=== PATIENT | female | born 1965 | race Caucasian/White ===

== ENCOUNTER → 2020-04-03 | Outpatient (CLI) | payer BC ==
--- NOTE | 2020-04-03 11:31 | RAD ---
STUDY: US PELVIS W/TV HISTORY: Pelvic and perineal pain. COMPARISON: Correlation is made to a CT abdomen/pelvis from 12/26/2017. TECHNIQUE: Pelvic ultrasound was performed with transabdominal and transvaginal probes. FINDINGS: The uterus is measured at 7 cm x 3.6 cm longitudinal/AP on the transvaginal images. 4.7 cm transverse on the transabdominal images. No focal uterine parenchymal abnormality. The endometrial echo is unremarkable at 0.3 cm in thickness. The left ovary measures 3.4 x 2.3 x 2.5 cm. A left ovarian masslike focus measures approximately 2.5 x 2.5 x 1.4 cm with a 1 cm shadowing calcification. Normal Doppler flow is maintained to the left ovary. The right ovary measures 3.4 x 1.7 x 1.8 cm. Simple appearing right ovarian cyst/dominant follicle measuring up to 1.4 cm. Normal Doppler flow to the right ovary. Small amount of simple free fluid within the deep pelvis. IMPRESSION: 1. No acute abnormality of the reproductive organs to account for the patient's symptoms. Small amount of simple appearing free fluid within the deep pelvis is nonspecific but is most likely physiologic especially if the patient is premenopausal/perimenopausal. 2. Calcified left ovarian mass measuring up to 3.4 cm. This is most compatible with a benign finding as the calcification has been present on CT exams dating back to 2010. No dedicated follow-up is needed unless otherwise clinically indicated. Electronically signed by: KRISH VAIL MD (04/03/2020 11:28 AM) [id number]
== END | disposition home or self-care (01) ==
LOC: US 09:41
PROVIDERS: ATTEND Specialist
DX: N83.291 Other ovarian cyst, right side (principal); N83.8 Other noninflammatory disorders of ovary, fallopian tube and broad ligament
CPT/HCPCS: 76830; 76856